=== PATIENT | male | born 1990 | race Caucasian/White ===

== ENCOUNTER 2017-03-20 15:38 | Emergency (ER) | payer OTHER ==
[2017-03-20 15:50] VITALS: BP 172/112
--- NOTE | 2017-03-20 16:57 | ED Physician Documentation ---
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 He inadvertently touched the electrode to his thumb on his right hand and felt the shock go through to his chest. He felt a bit dizzy for a moment and now this is resolved. He was sent here from medical for evaluation. The patient feels he is now asymptomatic.He does not have any evidence of burn to his skin does not have any pain. Review of Systems Constitutional: denies: Fever Eyes: denies: Loss of vision Ears: denies: Ear pain Nose: denies: Rhinorrhea / runny nose Cardiac: denies: Chest pain / pressure, Palpitations, Pedal edema, Calf pain Respiratory: denies: Dyspnea, Cough GI: denies: Vomiting PD PAST MEDICAL HISTORY - Past Medical History Past Medical History: No - Past Surgical History Past Surgical History: No - Present Medications Home Medications: Ambulatory Orders Medication Instructions Recorded Confirmed No Known Home Medications [No 03/20/17 03/20/17 Known Home Medications] - Allergies Allergies/Adverse Reactions: Allergies Allergy/AdvReac Type Severity Reaction Status Date / Time No Known Drug Allergies Allergy Verified 03/20/17 15:47 - Social History Does the pt smoke?: Yes Smoking Status: Current every day smoker Does the pt drink ETOH?: Yes Does the pt have substance abuse?: No - Immunizations Immunizations are current?: Yes PD ED PE NORMAL - Vitals Vital signs reviewed: Yes (Hypertensive and tachycardic) - General General: Alert and oriented X 3, No acute distress, Well developed/nourished - HEENT HEENT: Atraumatic, PERRL, EOMI - Neck Neck: Supple, no meningeal sign - Cardiac Cardiac: RRR, No murmur - Respiratory Respiratory: No respiratory distress, Clear bilaterally - Abdomen Abdomen: Soft, Non tender - Back Back: No CVA TTP, No spinal TTP - Derm Derm: Normal color, Warm and dry, No rash - Extremities Extremities: No deformity, No edema - Neuro Neuro: Alert and oriented X 3, No motor deficit, No sensory deficit, Normal speech - Psych Psych: Normal mood, Normal affect Results - Vitals Vitals: Vital Signs - 24 hr 03/20/17 15:47 Temperature 36.5 C Heart Rate 110 H Respiratory 18 Rate Blood Pressure 172/112 H O2 Saturation 99 Oxygen O2 Source Room air - EKG (time done) 1556 Rate: Rate (enter#) (101) Rhythm: Sinus tachycardia Ischemia: Normal ST segments Compare to prior EKG: Old EKG unavailable Computer interpretation: Agree with computer PD MEDICAL DECISION MAKING - ED course Complexity details: reviewed results, re-evaluated patient, considered differential, d/w patient ED course: Healthy 26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 He does not appear injured and has a normal electrocardiogram. He reports the voltage as 40,000 V and the milliamps is 50 mA. Both of these are at the verge of potentially serious injury. He does not feel injured, his electocardiogram is normal and his exam is normal. Departure - Departure Disposition: 01 Home, Self Care Clinical Impression: Electrical shock of hand Qualifiers: Encounter type: initial encounter Qualified Code(s): T75.4XXA - Electrocution, initial encounter Condition: Stable Instructions: Shock Electrical First Aid Follow-Up: Manohar Zhao MD [Primary Care Provider] -
== END 2017-03-20 17:17 | disposition home or self-care (01) ==
LOC: ED 15:38
DX: T75.4XXA Electrocution, initial encounter (principal); W86.8XXA Exposure to other electric current, initial encounter; R00.0 Tachycardia, unspecified; F17.200 Nicotine dependence, unspecified, uncomplicated
CPT/HCPCS: 93005; 99283